=== PATIENT | female | born 1970 | race African-American/Black ===

== ENCOUNTER 2020-03-05 16:55 | Emergency (ER) | payer OTHER ==
[~2020-03-05] VITALS: Ht 167.6 cm; Wt 76.7 kg
[2020-03-05 17:12] VITALS: BP 150/85
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
[2020-03-05] MEDS ORDERED: ROBAXIN-500MG ORAL (17:37)
[2020-03-05] MEDS ORDERED: LIDODERM700 M1 TOPIC (17:37)
[2020-03-05] MEDS ORDERED: IBU800 MG PO (17:37)
[2020-03-05 17:55] VITALS: BP 145/75
--- NOTE | 2020-03-05 17:55 | NUR ---
ER DISCHARGE NOTE: Patient is cleared to be discharged per ERMD, pt is aox4, on room air, with stable vital signs. pt was given dc and prescription instructions, pt was able to verbalize understanding, pt id band removed. pt is able to ambulate with steady gait. pt took all belongings.
== END 2020-03-05 17:55 | disposition home or self-care (01) ==
LOC: EMR 17:36
DX: R25.2 Cramp and spasm (principal); S16.1XXA Strain of muscle, fascia and tendon at neck level, initial encounter; S39.012A Strain of muscle, fascia and tendon of lower back, initial encounter; V43.52XA Car driver injured in collision with other type car in traffic accident, initial encounter; Y92.410 Unspecified street and highway as the place of occurrence of the external cause
CPT/HCPCS: 99282